=== PATIENT | male | born 1985 | race Caucasian/White ===

== ENCOUNTER 2023-12-10 13:52 | Emergency (ER) | payer OTHER, SELFPAY ==
[2023-12-10 13:54] VITALS: BP 140/100
--- NOTE | 2023-12-10 14:31 | ED.GENMED ---
History of Present Illness
General
Chief Complaint: Back Pain
Source: patient
Time Seen by Provider: 12/10/23 14:18
History of Present Illness
History of Present Illness:
38-year-old male with no significant past medical history presenting to the emergency department for evaluation of left-sided lower back pain that began earlier this morning while he was opening up a dog gate at his house. Patient states pain was
minimally improved with 2 Advil but was having significant discomfort while walking down the stairs which is what made him come to the ER for further evaluation. Patient denies any falls or traumatic injuries, focal weakness or numbness, bladder or
bowel incontinence, saddle anesthesia, history of long-term corticosteroid use or any other risk factors for fracture nor infection. Denies any history of back pain in the past. No other concerns.
Past History
Past History
ED Past Medical History: None
ED Past Surgical History: None
Social History
Tobacco: Non-smoker
Alcohol: None
Drug: None
Personal: Single
Living: with family
Family History
Family History: Other (Patient's paternal gram prior kidney stones); Negative Diabetes, Hypertension, Early CAD, Asthma or Cancer
Review of Systems
Review of Systems
All Other Systems: ROS reviewed and negative except as documented in HPI and ROS
Phy Exam
Physical Exam
Physical Exam:
GENERAL: Alert , in no apparent distress at rest but does appear uncomfortable with movements
EYE: clear conjunctiva b/l
NECK: Supple
ENT: o/p clr, mmm.
BACK: Normal range of motion but increased pain with rotation at the pelvis, no mild tenderness within the left paralumbar region, no midline bony tenderness, no rashes
NEUROLOGICAL: Alert and oriented, no focal neuro deficits. sensation grossly intact and equal to light touch bilateral lower extremities
SKIN: Warm and dry, skin intact.
MUSCULOSKELETAL: No edema, well perfused. EHL intact bilaterally
PSYCH: Normal and appropriate interaction.
Scores
Heart Failure Risk
Heart Failure Risk Score: Not Applicable
Heart Score for Chest Pain Patients
STEMI patient?: Not applicable
Withdrawal Assessment of Alcohol
Withdrawal Assessment Completed?: Not applicable
Course
Vital Signs
Initial and Last Documented VS:
Initial Vital Signs
Temp Pulse Resp BP Pulse Ox
98.4 F 100 16 140/100 99
12/10/23 13:54 12/10/23 13:54 12/10/23 13:54 12/10/23 13:54 12/10/23 13:54
Last Documented Vital Signs
Temp Pulse Resp BP Pulse Ox
98.4 F 100 16 140/100 99
12/10/23 13:54 12/10/23 13:54 12/10/23 13:54 12/10/23 13:54 12/10/23 13:54
MDM/Problems Addressed
Differential Diagnosis Includes:
Lumbar strain, disc herniation/nerve impingement, I do not have concern for cauda equina nor infectious etiology
MDM/Problems Addressed:
38-year-old male presenting emergency department for evaluation of left-sided lower back pain that started earlier this morning. Pain worsens with movements. There is tenderness within the left paralumbar region on exam. Suspect this is a
muscular etiology. I discussed with patient possibility of getting x-ray however he declines. Will treat with continued NSAIDs, muscle relaxant and topical agents. I also encourage patient to use heat over the affected area and try to avoid any
heavy lifting bending or twisting. Patient will follow-up with primary care provider as needed. Aware of return precautions. Otherwise stable for discharge home.
*Pulse Oximetry
Patient hypoxic: no
*Critical Care Note
Total Time (30-74mins, 75-104mins- exclusive of procedures): Not Applicable
ED Attending Note
-
Portions of this chart may have been created with voice recognition software.� Occasional wrong word or��sound alike� substitutions may have occurred due to the inherent limitations of voice recognition software.
Discharge Plan
Departure
Patient Disposition: Home (Routine Discharge)
Date of Disposition: 12/10/23
Time of Disposition: 14:31
Patient with high blood pressure during this ER visit?: Yes
Discharge Problem:
Dorsalgia
Instructions: Low Back Pain (DC)
Prescriptions:
New
baclofen 10 mg tablet
10 mg PO BID PRN (Reason: muscle spasm) Qty: 10 0RF
lidocaine [Lidoderm] 5 % adhesive patch,medicated
1 patch topical DAILY Qty: 30 0RF
No Action
No Meds [No Current Medications]
0
ketorolac [Toradol] 10 MG tablet
10 mg PO Q6HPRN PRN (Reason: pain) Qty: 0 0RF
Interventions
Interventions:
*General Assessment Last Done: 12/10/23 13:54
*ED COVID-19 Vaccine History Last Done: 12/10/23 13:54
Discharge Date and Time
Print Language: WELSH
== END 2023-12-10 15:12 | disposition home or self-care (01) ==
LOC: EMR 13:52
PROVIDERS: EMERGENCY PHYSICIAN Emergency Medicine
DX: M54.50 Low back pain, unspecified (principal); R03.0 Elevated blood-pressure reading, without diagnosis of hypertension
CPT/HCPCS: 99283